=== PATIENT | female | born 1990 | race African-American/Black ===

== ENCOUNTER 2020-12-22 12:35 | Emergency (ER) | payer MEDICAID ==
[~2020-12-22] VITALS: Ht 157.5 cm; Wt 50.0 kg
[2020-12-22] MEDS ORDERED: ACETAMINOPHEN 325MG TABLET PO PRN (13:00)
[2020-12-22 13:52] LABS: BASOPHILS % 0.3 % (0.0-2.0); EOSINOPHILS % 2.6 % (0.0-5.0); HEMATOCRIT. 39.9 % (36.0-48.0); HEMOGLOBIN. 13.5 g/dL (12.0-16.0); LYMPHOCYTES % 12.7 % (20.0-50.0); MEAN CORPUSCULAR HEMOGLOBIN 32.4 pg (28.0-32.0); MEAN CORPUSCULAR VOLUME 95.7 fL (81.0-99.0); MEAN PLATELET VOLUME 9.6 fl (7.4-10.4); MONOCYTES % 5.8 % (2.0-8.0); NEUTROPHILS % 78.6 % (40.0-76.0); PLATELET 206 x1000/uL (130-400); RED BLOOD CELL COUNT 4.17 mill/uL (4.2-5.4); RED CELL DISTRIBUTION WIDTH 12.2 % (11.6-14.6)
[2020-12-22 13:53] LABS: CLARITY URINE CLEAR (CLEAR); COLOR URINE YELLOW (YELLOW); KETONES URINE NEGATIVE (NEGATIVE); LEUKOCYTE ESTERASE URINE 1+ (NEGATIVE); NITRITE URINE NEGATIVE (NEGATIVE); OCCULT BLOOD URINE NEGATIVE (NEGATIVE); PROTEIN URINE 1+ (NEGATIVE); SPECIFIC GRAVITY URINE 1.023 (1.005-1.030)
[2020-12-22 13:59] LABS: CHLORIDE 102 mEq/L (98-107)
[2020-12-22] MEDS ORDERED: NITROFURANTOIN 100MG M/M CAPSULE PO ONE (14:30)
[2020-12-22] MEDS ORDERED: POTASSIUM CHLORIDE 20MEQ TABLET SR PO ONE (14:30)
[2020-12-22 14:38] LABS: B-HCG QUANTITATIVE 59857 mIU/mL (<3)
[2020-12-22 15:50] VITALS: BP 127/82
[2020-12-22] MEDS ORDERED: NITR-87 MT (16:04)
== END 2020-12-22 16:28 | disposition home or self-care (01) ==
LOC: ER 13:08
DX: O23.11 Infections of bladder in pregnancy, first trimester (principal); Z3A.09 9 weeks gestation of pregnancy; O99.511 Diseases of the respiratory system complicating pregnancy, first trimester
CPT/HCPCS: 36415; 73100; 76830; 76856; 80053; 81003; 81025; 84702; 85025; 86850; 86900; 93005; 99285

== ENCOUNTER 2021-07-27 05:50 | Inpatient (IN) | payer MEDICAID ==
[~2021-07-27] VITALS: Ht 152.4 cm; Wt 64.0 kg
[~2021-07-27 05:50] MED LIST: NITR-87 MT
[2021-07-27] MEDS ORDERED: DEXT 5%/LR + PITOCIN 20UNITS/L 1,000 ML IV SCH ×2 (07:15→09:15)
[2021-07-27] MEDS ORDERED: RHO(D) IMMUNE GLOBULIN 300 MCG/SYR IM SCH (07:15)
[2021-07-27] MEDS ORDERED: LIDOCAINE HCL 1% 20ML VIAL (Pyxis) INJ INFIL SCH (07:15)
[2021-07-27] MEDS ORDERED: BUTORPHANOL TARTRATE 2 MG/ML VIAL IM PRN (07:30)
[2021-07-27] MEDS ORDERED: PHENYLEPHRINE HCL 10 MG/ML 1ML (IV VIAL) IV ONE (08:00)
[2021-07-27] MEDS ORDERED: EPHEDRINE SULFATE 50MG/ML VIAL ONE (08:00)
[2021-07-27] MEDS ORDERED: CEFAZOLIN SODIUM 1000MG/VIAL ONE (08:00)
[2021-07-27] MEDS ORDERED: FENTANYL CITRATE/PF 50MCG/ML 2ML VIAL ONE (08:00)
[2021-07-27] MEDS ORDERED: MORPHINE SULFATE/PF 1MG/ML 10ML AMP ONE (08:00)
[2021-07-27] MEDS ORDERED: DEXT 5%/LACTATED RINGERS 1,000 ML IV SCH (08:00)
[2021-07-27] MEDS ORDERED: PENICILLIN G POTASSIUM 5 MMU in DEXT 5% WATER 100 ML IV SCH (08:00)
[2021-07-27] MEDS ORDERED: OXYTOCIN 10 UNITS/ML 1ML ONE (08:00)
[2021-07-27] MEDS ORDERED: CITRIC ACID/SODIUM CITRATE SOLN 30ML UDC PO SCH (08:00)
[2021-07-27] MEDS ORDERED: ONDANSETRON HCL 4MG/2ML INJ ONE (08:02)
[2021-07-27 08:03] LABS: BASOPHILS % 0.2 % (0.0-2.0); EOSINOPHILS % 0.9 % (0.0-5.0); HEMATOCRIT. 36.9 % (36.0-48.0); HEMOGLOBIN. 12.6 g/dL (12.0-16.0); LYMPHOCYTES % 24.8 % (20.0-50.0); MEAN CORPUSCULAR HEMOGLOBIN 32.8 pg (28.0-32.0); MEAN CORPUSCULAR VOLUME 95.7 fL (81.0-99.0); MEAN PLATELET VOLUME 9.9 fl (7.4-10.4); NEUTROPHILS % 66.1 % (40.0-76.0); PLATELET 176 x1000/uL (130-400); RED BLOOD CELL COUNT 3.85 mill/uL (4.2-5.4); RED CELL DISTRIBUTION WIDTH 14.4 % (11.6-14.6)
[2021-07-27 08:13] LABS: INR 0.9; PARTIAL THROMBOPLASTIN TIME 30.6 sec (23.4-31.0); PROTHROMBIN TIME 9.9 sec (9.6-11.0)
[2021-07-27] MEDS ORDERED: HEMORRHOIDAL SUPP PR PRN (09:15)
[2021-07-27] MEDS ORDERED: ACETAMINOPHEN WITH CODEINE 300/30MG TABLET PO PRN (09:15)
[2021-07-27] MEDS ORDERED: RHO(D) IMMUNE GLOBULIN 300 MCG/SYR IM PRN (09:15)
[2021-07-27] MEDS ORDERED: LANOLIN OINT 7GM TUBE TOP PRN (09:15)
[2021-07-27] MEDS ORDERED: GLYCERIN/WITCH HAZEL LEAF MEDICATED PAD TOP PRN (09:15)
[2021-07-27] MEDS ORDERED: BENZOCAINE/LANOLIN/ALOE VERA SPRAY TOP PRN (09:15)
[2021-07-27] MEDS ORDERED: IBUPROFEN 400MG TABLET PO PRN (09:15)
[2021-07-27] MEDS ORDERED: BISACODYL 10MG SUPP PR PRN (09:15)
[2021-07-27 10:53] LABS: HEPATITIS B SURFACE ANTIGEN NEGATIVE
[2021-07-27 11:00] VITALS: BP 106/66
[2021-07-27 12:00] VITALS: BP 105/55
[2021-07-27] MEDS ORDERED: PENICILLIN G POTASSIUM 2.5 MMU in DEXTROSE 5% WATER 50 ML IV SCH (12:00)
[2021-07-27 12:05] LABS: CLARITY URINE CLOUDY (CLEAR); COLOR URINE RED (YELLOW); KETONES URINE TRACE (NEGATIVE); LEUKOCYTE ESTERASE URINE 1+ (NEGATIVE); NITRITE URINE NEGATIVE (NEGATIVE); OCCULT BLOOD URINE 3+ (NEGATIVE); PROTEIN URINE 2+ (NEGATIVE); SPECIFIC GRAVITY URINE 1.004 (1.005-1.030)
[2021-07-27 12:25] LABS: *AMPHETAMINES SCREEN URINE NEGATIVE (NEGATIVE); *BARBITURATES SCREEN URINE NEGATIVE (NEGATIVE); *BENZODIAZEPINES SCREEN URINE NEGATIVE (NEGATIVE); *COCAINE SCREEN URINE NEGATIVE (NEGATIVE)
[2021-07-27 12:26] LABS: METHADONE URINE SCREEN NEGATIVE (NEGATIVE); OPIATES URINE SCREEN NEGATIVE (NEGATIVE); PHENCYCLIDINE URINE SCREEN NEGATIVE (NEGATIVE)
[2021-07-27 12:30] LABS: CANNABINOID URINE SCREEN PRESUMTIVE POSITIVE (NEGATIVE)
[2021-07-27 14:35] VITALS: BP 109/57
[2021-07-27 16:34] VITALS: BP 110/58
[2021-07-27 19:30] VITALS: BP 103/47
[2021-07-27] MEDS ORDERED: DOCUSATE SODIUM 100MG CAPSULE PO SCH (21:00)
[2021-07-27] MEDS: SIMETHICONE 80MG TABLET CHEW PO SCH (21:11)
[2021-07-27] MEDS: MAGNESIUM/ALUMINUM HYDROXIDE/SIMETHICONE 30ML UDC PO SCH (21:11)
[2021-07-28] MEDS: IBUPROFEN 800MG TABLET PO PRN ×2 (00:46→08:32)
[2021-07-28 04:00] VITALS: BP 97/59
[2021-07-28 06:34] LABS: BASOPHILS % 0.2 % (0.0-2.0); EOSINOPHILS % 0.6 % (0.0-5.0); HEMOGLOBIN. 11.1 g/dL (12.0-16.0); LYMPHOCYTES % 17.6 % (20.0-50.0); MEAN CORPUSCULAR HEMOGLOBIN 33.8 pg (28.0-32.0); MEAN CORPUSCULAR VOLUME 94.6 fL (81.0-99.0); MEAN PLATELET VOLUME 9.3 fl (7.4-10.4); MONOCYTES % 5.6 % (2.0-8.0); PLATELET 184 x1000/uL (130-400); RED BLOOD CELL COUNT 3.27 mill/uL (4.2-5.4); RED CELL DISTRIBUTION WIDTH 14.4 % (11.6-14.6)
[2021-07-28 07:30] VITALS: BP 99/60
[2021-07-28] MEDS ORDERED: FERROUS SULFATE 325MG TABLET PO SCH (07:30)
[2021-07-28] MEDS: MAGNESIUM/ALUMINUM HYDROXIDE/SIMETHICONE 30ML UDC PO SCH (08:32)
[2021-07-28] MEDS: SIMETHICONE 80MG TABLET CHEW PO SCH (08:32)
[2021-07-28] MEDS ORDERED: PRENATAL VIT/FE FUMARATE/FA TABLET PO SCH (09:00)
[2021-07-28] MEDS ORDERED: IBUP-2030 PO (10:48)
[2021-08-04 07:07] LABS: CANNABINOID CONFIRMATION URINE Positive (.)
== END 2021-07-28 14:50 | disposition home or self-care (01) | DRG 560 ==
LOC: 8 EST LDRP 05:50 → OBSVTOIN 05:50 → 8EST 10:56
PROVIDERS: ADMIT Obstetrics & Gynecology; ATTEND Obstetrics & Gynecology
PROC: 10D07Z6 Extraction of Products of Conception, Vacuum, Via Natural or Artificial Opening (ICD-10-PCS; principal; 2021-07-27)
PROC: 3E0234Z Introduction of Serum, Toxoid and Vaccine into Muscle, Percutaneous Approach (ICD-10-PCS; 2021-07-27)
DX: O34.211 Maternal care for low transverse scar from previous cesarean delivery (principal); Z37.0 Single live birth; J45.909 Unspecified asthma, uncomplicated; Z20.822 Contact with and (suspected) exposure to COVID-19; O42.92 Full-term premature rupture of membranes, unspecified as to length of time between rupture and onset of labor; O48.0 Post-term pregnancy; O99.52 Diseases of the respiratory system complicating childbirth; Z3A.40 40 weeks gestation of pregnancy; Z67.10 Type A blood, Rh positive
CPT/HCPCS: 36415; 80305; 80349; 81003; 85025; 86592; 86703; 86762; 86850; 86900; 87340; 87426; 99281; J0595; J0690; J2274; J2370; J2405; J2540; J2590; J3010; J3490; J7060; J7121

== ENCOUNTER 2021-11-11 16:09 | Emergency (ER) | payer SELFPAY ==
[~2021-11-11] VITALS: Ht 152.4 cm; Wt 51.0 kg
[~2021-11-11 16:09] MED LIST changes: +IBUP-2030 PO; -NITR-87 MT
[2021-11-11] MEDS ORDERED: IBUPROFEN 600MG TABLET PO ONE (16:30)
[2021-11-11 16:43] VITALS: BP 128/79
[2021-11-11] MEDS ORDERED: IBUP-2029 MT (17:05)
== END 2021-11-11 17:43 | disposition home or self-care (01) ==
LOC: ER 16:09
DX: M25.562 Pain in left knee (principal); J45.909 Unspecified asthma, uncomplicated; Z98.890 Other specified postprocedural states
CPT/HCPCS: 73560; 99283

== ENCOUNTER 2022-02-03 16:29 | Emergency (ER) | payer MEDICAID ==
[~2022-02-03] VITALS: Ht 152.4 cm; Wt 55.0 kg
[~2022-02-03 16:29] MED LIST changes: +IBUP-2029 MT
[2022-02-03 16:45] VITALS: BP 100/79
== END 2022-02-03 22:00 | disposition left against medical advice (07) ==
LOC: ER 16:29
DX: Z53.21 Procedure and treatment not carried out due to patient leaving prior to being seen by health care provider (principal)